=== PATIENT | male | born 1965 | race Caucasian/White ===

== ENCOUNTER 2016-04-28 03:39 | Emergency (ER) | payer SELFPAY ==
[~2016-04-28] VITALS: Ht 188 cm; Wt 77.1 kg
--- NOTE | 2016-04-28 03:58 | ED UPPER/LOWER EXTREMITY COMPL ---
History of Present Illness General Chief Complaint: Shoulder Injury Stated Complaint: DISLOCATED LEFT SHOULDER Source: patient Exam Limitations: no limitations Vital Signs & Intake/Output Vital Signs & Intake/Output Vital Signs Date Time Temp Pulse Resp B/P Pulse O2 O2 Flow FiO2 Ox Delivery Rate 04/28 0359 81 20 151/78 98 Allergies Coded Allergies: NSAIDS (Non-Steroidal Anti-Inflamma (SWELLING 04/28/16) barley (HIVES 04/28/16) Reconcile Medications Hydrocodone/Acetaminophen (Vicodin 5-300 MG Tablet) 5 MG-300 MG TABLET 1 TAB PO Q4-6 PRN Pin (Reported) Triage Nurses Notes Reviewed? yes Onset: Abrupt Duration: hour(s): Timing: single episode today Severity: moderate Pain/Injury Location: Left: Shoulder. Method of Injury: "I WAS PICKING SOMETHING UP." Modifying Factors: Worsens With: movement. Associated Symptoms: LEFT SHOULDER PAIN. HPI: 50 yo gentleman presents with "winged scapula" syndrome. "I was lifting a box a few hours ago and my shoulder popped out.... There is only a few like me in the world... Let me show you a video." He notes pain and reduced range of motion. No direct contusion or injury Past History Travel History Traveled to [place] past 21 day No Medical History Any Pertinent Medical History? see below for history Musculoskeletal: "winged scapula" syndrome Surgical History Surgical History: none Family History Hx Contributory? No Review of Systems Review of Systems Constitutional: Reports: no symptoms. EENTM: Reports: no symptoms. Respiratory: Reports: no symptoms. Cardiovascular: Reports: no symptoms. Gastrointestinal/Abdominal: Reports: no symptoms. Genitourinary: Reports: no symptoms. Musculoskeletal: Reports: no symptoms. Skin: Reports: no symptoms. Neurological/Psychological: Reports: no symptoms. Hematologic/Endocrine: Reports: no symptoms. Immunological: Reports: no symptoms. All Other Systems: Reviewed and Negative Physical Exam Physical Exam General Appearance: well developed/nourished, mild distress Head: atraumatic Eyes: Bilateral: normal appearance. Ears, Nose, Throat: normal pharynx, normal ENT inspection, hearing grossly normal Neck: normal inspection, supple Cardiovascular/Respiratory: regular rate/rhythm Back: normal inspection Shoulder Left: deformity of scapula.... superior displacement... limited ROM of shoulder. no focal bony tenderness. Skin: intact, normal color, warm/dry Lymphatic: no anterior cervical alma Progress Differential Diagnosis: dislocation, fracture, sprain Plan of Care: Current Medications Sig/Evon Start time Last Medication Dose Stop Time Status Admin Hydromorphone HCl 1 MG ONCE ONE 04/28 399 CAN (Dilaudid) 04/28 400 Diagnostic Imaging: Viewed by Me: Radiology Read. Discussed w/RAD: Radiology Read. Radiology Impression: LEFT SHOULDER... CEPHALAD WINGING OF SCAPULA... FULL REPORT BELOW. Comments: PATIENT: CHRISS HERNANDEZ PRESENT AGE: 50 PATIENT ACCOUNT NO: [id number] : 67 LOCATION: [facility] ORDERING PHYSICIAN: MAGDA SOSA MD SERVICE DATE: 04/28/16 EXAM TYPE: RAD - XRY-SHOULDER COMPLETE-LEFT EXAMINATION: XR SHOULDER, LEFT CLINICAL INFORMATION: Left shoulder dislocation. COMPARISON: None. TECHNIQUE: Single internal rotation AP view of the left shoulder . Patient refused second image. FINDINGS: There is abnormal orientation of the scapula with cephalad displacement of the scapular body and medial margin. Humeral head is appropriate situated at the glenoid. Acromioclavicular joint alignment appears normal. IMPRESSION: Cephalad winging of the scapula on this single AP view. Alignment of the acromioclavicular and glenohumeral joints is normal. DICTATED BY: JOSHUA JOHNSON MD DATE/TIME DICTATED:04/28/16428 HOGSHEAD FILLER:JAE DATE/TIME TRANSCRIBED:04/28/16428 CONFIDENTIAL, DO NOT COPY WITHOUT APPROPRIATE AUTHORIZATION. <Electronically signed in Other Vendor System> SIGNED BY: JOSHUA JOHNSON MD 04/28/16435 Departure Departure Disposition: HOME OR SELF CARE Condition: Stable Clinical Impression Primary Impression: Winged scapula of left side Referrals: UNKNOWN (PCP/Family) Referred to [facility] as new patient No Departure Forms: Customer Survey General Discharge Information Comments [email or web address] Procedures Joint Reduction Joint Reduction Site: shoulder (L) Conscious Sedation: NO CONSCIOUS SEDATION Reduction Attempts: 1 Pre-Procedure NV Exam: Yes Post-Procedure NV Exam: Yes Post Joint Reduction Film: joint reduced Progress: PT PROVIDED YOUTUBE VIDEO WHICH FEATURES HIMSELF HAVING HIS SCAPULA REDUCED....THIS PROCEDURE WAS FOLLOWED.[email or web address] Pt showed excellent function. He declines follow up xray/pain meds.
[2016-04-28 03:59] VITALS: BP 151/78
[2016-04-28] MEDS ORDERED: VICODIN 5-3001 EACH PO (04:01)
--- NOTE | 2016-04-28 04:36 | RADIOLOGY REPORT ---
EXAMINATION: XR SHOULDER, LEFT CLINICAL INFORMATION: Left shoulder dislocation. COMPARISON: None. TECHNIQUE: Single internal rotation AP view of the left shoulder . Patient refused second image. FINDINGS: There is abnormal orientation of the scapula with cephalad displacement of the scapular body and medial margin. Humeral head is appropriate situated at the glenoid. Acromioclavicular joint alignment appears normal. IMPRESSION: Cephalad winging of the scapula on this single AP view. Alignment of the acromioclavicular and glenohumeral joints is normal.
== END 2016-04-28 06:43 ==
LOC: ERH 03:39
DX: M95.8 Other specified acquired deformities of musculoskeletal system (principal); X50.0XXA Overexertion from strenuous movement or load, initial encounter
CPT/HCPCS: 73030-LT; 96372

== ENCOUNTER 2016-05-08 08:39 | Emergency (ER) | payer SELFPAY ==
[~2016-05-08] VITALS: Ht 188 cm; Wt 81.6 kg
[~2016-05-08 08:39] MED LIST: VICODIN 5-3001 EACH PO
[2016-05-08 08:46] VITALS: BP 122/86
--- NOTE | 2016-05-08 09:01 | ED UPPER/LOWER EXTREMITY COMPL ---
History of Present Illness General Chief Complaint: General Adult Stated Complaint: "DISLOCATED L SCAPULA" Source: patient Exam Limitations: no limitations Vital Signs & Intake/Output Vital Signs & Intake/Output Vital Signs Date Time Temp Pulse Resp B/P Pulse O2 O2 Flow FiO2 Ox Delivery Rate 05/08 0846 97.2 83 20 122/86 98 Allergies Coded Allergies: NSAIDS (Non-Steroidal Anti-Inflamma (SWELLING 04/28/16) barley (HIVES 04/28/16) Reconcile Medications No Known Home Medications Triage Note: PT PRESENTS TO ER C/O OF LEFT SCAPULA DISLOCATION. 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 PT STATES THIS HAPPENS FREQUENTLY DUE TO HIS SYNDROME. PT STATES HE IS ALLERGIC TO NSAIDS AND DOESN'T WANT TO TAKE ANYTHING UNTIL HE SEES MD Triage Nurses Notes Reviewed? yes HPI: Patient presents for evaluation of abrupt onset of severe left periscapular pain as a result of a dislocated scapula that began prior to arrival. Patient states that the incident occurred while he was getting up out of a chair at a local hotel. He has had left scapular dislocations for many years. He states that there is no real viable permanent solution to his problem as surgical correction has what he feels to be unacceptably high complication rates. Past History Travel History Traveled to [place] past 21 day No Medical History Any Pertinent Medical History? see below for history Neurological: NONE EENT: NONE Cardiovascular: NONE Respiratory: NONE Gastrointestinal: NONE Hepatic: NONE Renal: NONE Musculoskeletal: "winged scapula" syndrome Psychiatric: NONE Endocrine: NONE Surgical History Surgical History: none Psychosocial History What is your primary language Latvian Tobacco Use: Never used Family History Hx Contributory? No Review of Systems Review of Systems Constitutional: Reports: no symptoms. EENTM: Reports: no symptoms. Respiratory: Reports: no symptoms. Cardiovascular: Reports: no symptoms. Gastrointestinal/Abdominal: Reports: no symptoms. Genitourinary: Reports: no symptoms. Musculoskeletal: Reports: see HPI. Skin: Reports: no symptoms. Neurological/Psychological: Reports: no symptoms. Hematologic/Endocrine: Reports: no symptoms. Immunological: Reports: no symptoms. All Other Systems: Reviewed and Negative Physical Exam Physical Exam General Appearance: see below Comments: Gen.: Well-nourished, well-developed, no acute respiratory distress. Head: Normocephalic, atraumatic. Eyes: Normal inspection bilaterally Ears: Normal inspection bilaterally Nose: Normal inspection Throat/mouth : Moist mucosa Neck: Supple, full range of motion, no goiter Heart: Regular rate and rhythm, no murmurs rubs or gallops Lungs: Clear to auscultation bilaterally with normal air entry Chest: Nontender Back: Normal range of motion Abdomen: Soft, nontender, nondistended, normal bowel sounds Extremities: Left shoulder: Deformity noted in the area of the left trapezius with decreased range of motion of left upper extremity, left upper extremity is otherwise neurovascular intact. Neurologic: Cranial nerves grossly intact, speech is clear Skin: warm and dry Psychiatric: Calm, cooperative, no apparent delusions or hallucinations Progress Differential Diagnosis: dislocation Plan of Care: Current Medications Sig/Evon Start time Last Medication Dose Stop Time Status Admin Hydromorphone HCl 2 MG ONCE ONE 05/08 914 UNVr (Dilaudid) 05/08 915 Comments: 05/08/2016 9:12:55 AM patient medicated with 6 mg of subcutaneous morphine and reduction of the patient's scapular dislocation attempted under his direction. First attempt unsuccessful. Patient states his pain is not adequately controlled to allow the reduction to occur. He refuses however ketamine or anything else to "knock him out" and he refuses an IV. IM Dilaudid ordered. 05/08/2016 9:29:44 AM second attempt at reduction successful. Patient's deformity resolved. Departure Departure Disposition: HOME OR SELF CARE Condition: Stable Clinical Impression Primary Impression: Closed dislocation of left scapula Qualifiers: Encounter type: initial encounter Qualified Code: S43.315A - Dislocation of left scapula, initial encounter Referrals: UNKNOWN (PCP/Family) Additional Instructions: Avoid extreme movements of the left shoulder. Use Shoulder immobilizer or clavicle splint. Follow-up with an operations and maintenance specialist (such as Dr COREAS ) as soon as possible for reevaluation. Return if any concerns or sudden worsening. Departure Forms: Customer Survey General Discharge Information Prescriptions: Current Visit Scripts No Known Home Medications
== END 2016-05-08 09:41 ==
LOC: ERH 08:39
DX: S43.312 Subluxation of left scapula (principal); X58.XXXA Exposure to other specified factors, initial encounter
CPT/HCPCS: 96372

== ENCOUNTER 2016-08-23 10:08 | Emergency (ER) | payer OTHER ==
[~2016-08-23] VITALS: Ht 188 cm; Wt 81.6 kg
--- NOTE | 2016-08-23 10:36 | ED UPPER/LOWER EXTREMITY COMPL ---
History of Present Illness General Chief Complaint: Shoulder Injury Stated Complaint: ?DISLOCATED LT SHOULER Source: patient Exam Limitations: no limitations Vital Signs & Intake/Output Vital Signs & Intake/Output Vital Signs Date Time Temp Pulse Resp B/P B/P Pulse O2 O2 Flow FiO2 Mean Ox Delivery Rate 08/23 1127 82 16 134/75 95 Room Air 08/23 1115 Room Air 08/23 1013 98.0 101 20 125/78 98 Room Air Allergies Coded Allergies: NSAIDS (Non-Steroidal Anti-Inflamma (SWELLING 04/28/16) barley (HIVES 04/28/16) Reconcile Medications No Known Home Medications Triage Note: PT TO ED C/O LEFT SHOULDER DISLOCATION. STATES HAPPENED 20 MINS AGO WHILE LIFTING A BOX. H/O THE SAME. DECLINING MEDS IN TRIAGE. Triage Nurses Notes Reviewed? yes Onset: Abrupt Duration: minute(s):, constant, continues in ED Timing: recent history Severity: moderate, severe Pain/Injury Location: Left: Shoulder. No Modifying Factors: none HPI: 51-year-old male comes into emergency room with complaints of left scapular dislocation. He reports that he is one of 3 people in the country that gets a winged scapula and requires reduction from time to time. This is normal for him. Patient was lifting some furniture when it happened. Denies any other associated symptoms. Patient does not want an x-ray because he has had this many times before. Sharp pain. Continuous. Nonradiating. (YANIRA BARCLAY) Past History Travel History Traveled to [place] past 21 day No Medical History Any Pertinent Medical History? see below for history Neurological: NONE EENT: NONE Cardiovascular: NONE Respiratory: NONE Gastrointestinal: NONE Hepatic: NONE Renal: NONE Musculoskeletal: "winged scapula" syndrome Psychiatric: NONE Endocrine: NONE Surgical History Surgical History: none Psychosocial History What is your primary language Haitian Tobacco Use: Current Daily Use Daily Tobacco Use Amount/Type: => 5 Cigarettes daily ETOH Use: denies use Illicit Drug Use: denies illicit drug use Family History Hx Contributory? No (YANIRA BARCLAY) Review of Systems Review of Systems Constitutional: Reports: no symptoms. EENTM: Reports: no symptoms. Respiratory: Reports: no symptoms. Cardiovascular: Reports: no symptoms. Gastrointestinal/Abdominal: Reports: no symptoms. Genitourinary: Reports: no symptoms. Musculoskeletal: Reports: see HPI. Skin: Reports: no symptoms. Neurological/Psychological: Reports: no symptoms. Hematologic/Endocrine: Reports: no symptoms. Immunological: Reports: no symptoms. All Other Systems: Reviewed and Negative (YANIRA BARCLAY) Physical Exam Physical Exam General Appearance: well developed/nourished, mild distress Head: atraumatic Eyes: Bilateral: normal appearance. Ears, Nose, Throat: normal ENT inspection, hearing grossly normal Neck: normal inspection Cardiovascular/Respiratory: no respiratory distress Back: normal inspection Shoulder Left: positive deformity scapular region , radial pulse intact, manager transport strength intact, sensation intact, Neurologic/Tendon: normal sensation, normal motor functions, normal tendon functions, responds to pain, no evidence tendon injury, no pulse deficit Skin: intact, normal color, warm/dry Lymphatic: no anterior cervical alma (YANIRA BARCLAY) Progress Differential Diagnosis: contusion, dislocation, DVT, fracture, gout, septic arthritis, sprain, tendon injury, winged scapula Plan of Care: Current Medications Sig/Evon Start time Last Medication Dose Stop Time Status Admin Diazepam 5 MG ONCE ONE 08/23 1129 UNVr (Valium) 08/23 1131 Departure Departure Disposition: HOME OR SELF CARE Condition: Stable Clinical Impression Primary Impression: Closed dislocation of left scapula Referrals: PATIENT HAS NO PRIMARY CARE DR (PCP/Family) Additional Instructions: Follow-up with your orthopedic doctor. Return if any concerns worsening symptoms. Please go over all results of today's visit with your primary care doctor. Contact your primary care doctor to let them know you were here in the emergency room. There may be nonspecific findings which may not be related to your visit today here in the emergency room but may require further evaluation and chronic monitoring by your primary care doctor. If you had a laceration today the chance of foreign body always remains. You should follow-up with your primary care doctor for recheck in 3-5 days for a wound check. If you had an x-ray done there is a chance that a fracture could have been missed on initial read and you should follow-up with your primary care doctor for repeat x-rays if symptoms persist. If your blood pressure was elevated here in the emergency room please have rechecked by her primary care doctor within the next 48 hours by your primary care doctor. If you were prescribed a narcotic here in the emergency room or any type of controlled substances you're not allowed to drive while taking this medication or operate any type of heavy machinery. Narcotics can make you feel lightheaded dizziness nausea and can cause constipation. You may need to pick up man a stool softener. Thank you for choosing [facility] emergency room. Please return to the emergency room immediately if you have any other concerns worsening of symptoms. Departure Forms: Customer Survey General Discharge Information Prescriptions: Current Visit Scripts No Known Home Medications Comments 08/23/2016 11:41:05 AM Patient clinically looks well. Patient declined any x-ray here in the emergency room. Follow-up with primary care doctor. Return if any other concerns. (YANIRA BARCLAY) PA/ACCOUNTING CONSULTANT Co-Sign Statement Statement: ED Attending supervision documentation- [] I saw and evaluated the patient. I have also reviewed all the pertinent lab results and diagnostic results. I agree with the findings and the plan of care as documented in the PA's/ACCOUNTING CONSULTANT's documentation. [X] I have reviewed the ED Record and agree with the PA's/ACCOUNTING CONSULTANT's documentation. [] Additions or exceptions (if any) to the PAs/ACCOUNTING CONSULTANT's note and plan are summarized below: [] (ROSE HUGO,DANIELLE Hopson) Procedures Joint Reduction Joint Reduction Site: shoulder (L) (scapula) Conscious Sedation: patient medicated with IM Dilaudid Reduction Attempts: 2 Pre-Procedure NV Exam: Yes Post-Procedure NV Exam: Yes Post Joint Reduction Film: joint reduced (YANIRA BARCLAY)
[2016-08-23 11:27] VITALS: BP 134/75
== END 2016-08-23 11:29 ==
LOC: ERH 10:08
DX: S43.315A Dislocation of left scapula, initial encounter (principal); X50.0XXA Overexertion from strenuous movement or load, initial encounter; Y93.89 Activity, other specified; Y92.9 Unspecified place or not applicable
CPT/HCPCS: 96372; J3360

== ENCOUNTER 2016-11-20 08:32 | Emergency (ER) | payer OTHER ==
[~2016-11-20] VITALS: Ht 188 cm; Wt 81.6 kg
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
--- NOTE | 2016-11-20 09:48 | RADIOLOGY REPORT ---
EXAMINATION: LEFT ELBOW AND RIGHT HAND CLINICAL INFORMATION: Trauma COMPARISON: None TECHNIQUE: 4 views of the left elbow. Frontal lateral and oblique films of the right hand FINDINGS: Left elbow: There is a small elbow joint effusion. There is a nondisplaced fracture of the radial head extending to the articular surface. There is no dislocation. No other fracture is seen in the left elbow. Right hand: No definite acute fracture or dislocation is seen in the right hand. Slight cortical irregularity along the lateral mid shaft of the fifth metacarpal may be sequela of old injury. A fracture line is not defined. There is old healed fracture involving the base of the first metacarpal and the distal phalanx of the fifth finger. No dislocation. IMPRESSION: 1. Nondisplaced fracture of the left radial head extending to the articular surface. No dislocation. 2. No definite acute fracture or dislocation is seen in the right hand. Some cortical irregularity along the lateral aspect of the fifth metacarpal shaft may be sequela of old injury. Correlate with clinical findings. 3. Old healed fractures of the distal phalanx of the right fifth finger and first metacarpal shaft
[2016-11-20] MEDS ORDERED: OXYCODONE HCL5 M1 PO (10:22)
[2016-11-20 10:28] VITALS: BP 124/80
== END 2016-11-20 10:28 ==
LOC: ERH 08:32
DX: S52.122A Displaced fracture of head of left radius, initial encounter for closed fracture (principal); W20.8XXA Other cause of strike by thrown, projected or falling object, initial encounter; Y92.9 Unspecified place or not applicable; Y93.9 Activity, unspecified
CPT/HCPCS: 73080-LT; 73120-RT

== ENCOUNTER 2017-07-27 10:57 | Emergency (ER) | payer SELFPAY ==
[~2017-07-27] VITALS: Ht 188 cm; Wt 72.6 kg
[~2017-07-27 10:57] MED LIST changes: +OXYCODONE HCL5 M1 PO
[2017-07-27 11:02] VITALS: BP 111/71
--- NOTE | 2017-07-27 11:22 | ED UPPER/LOWER EXTREMITY COMPL ---
History of Present Illness General Chief Complaint: Shoulder Injury Stated Complaint: L SHOULDER PAIN Source: patient Exam Limitations: no limitations Vital Signs & Intake/Output Vital Signs & Intake/Output Vital Signs Date Time Temp Pulse Resp B/P B/P Pulse O2 O2 Flow FiO2 Mean Ox Delivery Rate 07/27 1102 98.3 91 18 111/71 98 Room Air Allergies Coded Allergies: NSAIDS (Non-Steroidal Anti-Inflamma (SWELLING 04/28/16) barley (HIVES 04/28/16) Reconcile Medications No Known Home Medications Triage Note: 52 YO MALE TO TRIAGE STATING "MY SCAPULA IS DISLOCATED" STATES THIS HAS HAPPENED BOFRE. STATES HE WAS LIFTING A BOX AND HEARD A POP. PT ABLE TO MOVE L ARM. Triage Nurses Notes Reviewed? yes Onset: Abrupt Duration: day(s):, constant Timing: recent history Severity: moderate, severe Pain/Injury Location: Left: Shoulder. No Modifying Factors: none HPI: 52-year-old male comes into the emergency room reporting that his left scapula is dislocated reports that it's happened to him before. It occurred while lifting a box. He reports that they typically give him IM Dilaudid and then reduce it. Sharp. Continuous. (Skinny Proctor) Past History Travel History Traveled to [place] past 21 day No Medical History Any Pertinent Medical History? 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 No (Skinny Proctor) Review of Systems Review of Systems Constitutional: Reports: no symptoms. EENTM: Reports: no symptoms. Respiratory: Reports: no symptoms. Cardiovascular: Reports: no symptoms. Gastrointestinal/Abdominal: Reports: no symptoms. Genitourinary: Reports: no symptoms. Musculoskeletal: Reports: see HPI. Skin: Reports: no symptoms. Neurological/Psychological: Reports: no symptoms. Hematologic/Endocrine: Reports: no symptoms. Immunological: Reports: no symptoms. All Other Systems: Reviewed and Negative (Skinny Proctor) Physical Exam Physical Exam General Appearance: well developed/nourished, mild distress Head: atraumatic Eyes: Bilateral: normal appearance. Ears, Nose, Throat: normal ENT inspection, hearing grossly normal Neck: normal inspection Cardiovascular/Respiratory: no respiratory distress Back: normal inspection Shoulder Left: DEFORMITY, LIMITED RANGE OF MOTION, RADIAL PULSE INTACT, CARD STRIPPER STRENGTH INTACT Neurologic/Tendon: normal sensation, normal motor functions, normal tendon functions, responds to pain, no evidence tendon injury, no pulse deficit Skin: intact, normal color, warm/dry (Skinny Proctor) Progress Differential Diagnosis: contusion, dislocation, fracture, sprain, tendon injury Plan of Care: Current Medications Sig/Evon Start time Last Medication Dose Stop Time Status Admin Morphine Sulfate 10 MG ONCE ONE 07/27 113 UNVr (Morphine) 07/27 1131 Comments: 07/27/2017 2:20:09 PM Patient told me that he wanted Dilaudid for the reduction. I explained to him that there is no Dilaudid in the hospital currently. He reports that it would then take 20 mg of morphine. I told him I will not give him 20 mg of morphine. Patient was told that we can start with 10 mg and attempt reduction and if that wasn't able to be done we could consider conscious sedation. When the nurse went to administer the morphine he was sleeping in the room comfortably. we came back and reevaluated him. He was upset that he had not gotten the medication. He was given the morphine 10 mg IM. He was alert and oriented and not drowsy at that time. After 5 minutes of getting the medication he was demanding that he get the other 10 mg. I told him that that is not how it works and we can attempt a manual reduction in a few minutes. The patient walked out of the emergency room and eloped AGAINST MEDICAL ADVICE. He reports "he will return later when there is another doctor on that will give him the 20 mg of morphine". He did not sign any forms. He just walked out of the emergency room. The case was discussed with Dr. De La Rosa and he agreed with my plan of care. (Skinny Proctor) Departure Departure Disposition: LEFT AGAINST MEDICAL ADVICE Condition: Stable Clinical Impression Primary Impression: Closed dislocation of left scapula Referrals: Patient Has No Primary Care Dr (PCP/Family) Additional Instructions: Patient eloped from the ER because he wanted another 10 mg of morphine for attempt at reduction was performed. He left AMA. He did not sign any forms. He just walked out of the emergency room. Departure Forms: Customer Survey General Discharge Information Prescriptions: Current Visit Scripts No Known Home Medications (Skinny Proctor) PA/MANAGER IT TRAINING Co-Sign Statement Statement: ED Attending supervision documentation- [] I saw and evaluated the patient. I have also reviewed all the pertinent lab results and diagnostic results. I agree with the findings and the plan of care as documented in the PA's/MANAGER IT TRAINING's documentation. [X] I have reviewed the ED Record and agree with the PA's/MANAGER IT TRAINING's documentation. During the PAs presentation of the case to me the patient announced that he was leaving in order to return when there is a different doctor in the emergency department. He ambulated quite briskly from the emergency department and seemed to be in no distress whatsoever. [] Additions or exceptions (if any) to the PAs/MANAGER IT TRAINING's note and plan are summarized below: [] (Estrella HUGO,Emanuel Roblero)
== END 2017-07-27 14:22 | disposition left against medical advice (07) ==
LOC: ERH 10:57
DX: S43.312 Subluxation of left scapula (principal); X58.XXXA Exposure to other specified factors, initial encounter; Y92.9 Unspecified place or not applicable; Y93.9 Activity, unspecified
CPT/HCPCS: 96372

== ENCOUNTER 2017-10-29 10:16 | Emergency (ER) | payer SELFPAY ==
[~2017-10-29] VITALS: Ht 188 cm; Wt 81.6 kg
[2017-10-29 11:24] VITALS: BP 153/70
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
== END 2017-10-29 11:42 ==
LOC: ERH 10:16
DX: S43.315A Dislocation of left scapula, initial encounter (principal); X50.9XXA Other and unspecified overexertion or strenuous movements or postures, initial encounter; Y93.89 Activity, other specified
CPT/HCPCS: 96372

== ENCOUNTER 2017-10-30 04:25 | Emergency (ER) | payer SELFPAY ==
[~2017-10-30] VITALS: Ht 188 cm; Wt 72.6 kg
[2017-10-30 04:37] VITALS: BP 113/69
--- NOTE | 2017-10-30 04:47 | ED UPPER/LOWER EXTREMITY COMPL ---
History of Present Illness General Chief Complaint: Upper Extremity Injury Stated Complaint: "LT SHOULDER DISLOCATED" Source: patient Exam Limitations: no limitations Vital Signs & Intake/Output Vital Signs & Intake/Output Vital Signs Date Time Temp Pulse Resp B/P B/P Pulse O2 O2 Flow FiO2 Mean Ox Delivery Rate 10/30 0437 96.7 84 20 113/69 99 Room Air Allergies Coded Allergies: NSAIDS (Non-Steroidal Anti-Inflamma (SWELLING 04/28/16) barley (HIVES 04/28/16) Reconcile Medications No Known Home Medications Triage Note: PT HERE WITH C/O LEFT SCAPULA DISLOCATION. PT WAS HERE EARLIER AND HAD IT RE-SET AND "IT CAME BACK OUT". Triage Nurses Notes Reviewed? 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 He notes, "I woke up this morning and it had popped out again." He denies trauma, but notes, "this sorta thing has happened before... my scapula will pop out around 10 times a year." He is otherwise well. Past History Travel History Traveled to [place] past 21 day No Medical History Any Pertinent Medical History? 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 No Review of Systems Review of Systems Constitutional: Reports: no symptoms. EENTM: Reports: no symptoms. Respiratory: Reports: no symptoms. Cardiovascular: Reports: no symptoms. Gastrointestinal/Abdominal: Reports: no symptoms. Genitourinary: Reports: no symptoms. Musculoskeletal: Reports: no symptoms. Skin: Reports: no symptoms. Neurological/Psychological: Reports: no symptoms. Hematologic/Endocrine: Reports: no symptoms. Immunological: Reports: no symptoms. All Other Systems: Reviewed and Negative Physical Exam Physical Exam General Appearance: well developed/nourished, mild distress Head: atraumatic Eyes: Bilateral: normal appearance. Ears, Nose, Throat: normal pharynx, normal ENT inspection, hearing grossly normal Neck: normal inspection, supple Cardiovascular/Respiratory: regular rate/rhythm Back: normal inspection Shoulder Left: deformity of the left scapula c/w dislocation. left humeral head appears to be inalignment with normal ROM. Skin: intact, normal color, warm/dry Lymphatic: no anterior cervical alma Progress Differential Diagnosis: scapula dislocation Plan of Care: Current Medications Sig/Evon Start time Last Medication Dose Stop Time Status Admin Hydromorphone HCl 2 MG ONCE ONE 10/30 514 UNVr 10/30 (Dilaudid) 10/30 0516 0519 Departure Departure Disposition: HOME OR SELF CARE Condition: Stable Clinical Impression Primary Impression: Closed dislocation of left scapula Referrals: Patient Has No Primary Care Dr (PCP/Family) Departure Forms: Customer Survey General Discharge Information Prescriptions: Current Visit Scripts No Known Home Medications Comments pt given dilaudid 2mg im x 2... traction applied anteriorly. I pushed scapula superiorly. pt's scapula snapped back into postion. ROM is normal afterwards. His pain is resolved. Procedures Joint Reduction Joint Reduction Site: left scapular reduction Reduction Attempts: 1 Pre-Procedure NV Exam: Yes Post-Procedure NV Exam: Yes Post Joint Reduction Film: joint reduced
== END 2017-10-30 05:31 ==
LOC: ERH 04:25
DX: S43.312 Subluxation of left scapula (principal); X58.XXXA Exposure to other specified factors, initial encounter; Y92.9 Unspecified place or not applicable; Y93.89 Activity, other specified
CPT/HCPCS: 96372

== ENCOUNTER 2017-12-02 12:29 | Emergency (ER) | payer SELFPAY ==
[~2017-12-02] VITALS: Ht 188 cm; Wt 81.6 kg
[2017-12-02 13:06] VITALS: BP 109/66
--- NOTE | 2017-12-02 13:45 | ED GENERAL ADULT ---
History of Present Illness General Chief Complaint: Shoulder Injury Stated Complaint: "DISLOCATED MY LEFT SHOULDER" Source: patient, old records Exam Limitations: no limitations Vital Signs & Intake/Output Vital Signs & Intake/Output Vital Signs Date Time Temp Pulse Resp B/P B/P Pulse O2 O2 Flow FiO2 Mean Ox Delivery Rate 12/02 1306 98.2 79 17 109/66 98 Room Air Room Air Allergies Coded Allergies: NSAIDS (Non-Steroidal Anti-Inflamma (SWELLING 12/02/17) barley (HIVES 12/02/17) Reconcile Medications No Known Home Medications Triage Note: PT TO TRIAGE FOR LEFT SHOULDER AND SCAPULAR PAIN. STATES SCAPULA IS "DISLOCATED" STATES THIS HAPPENS OFTEN AND IT JUST NEEDS TO BE REPLACED. Triage Nurses Notes Reviewed? 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 Patient states that it "happened again "patient states that he was lifting something at home, felt his scapula lock. Typically, with this presentation patient requires analgesia and manual reduction. Patient denies any other symptoms and is otherwise asymptomatic/intact. Past History Travel History Traveled to [place] past 21 day No Medical History Any Pertinent Medical History? 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 No Review of Systems Review of Systems Constitutional: Reports: no symptoms. EENTM: Reports: no symptoms. Respiratory: Reports: no symptoms. Cardiovascular: Reports: no symptoms. GI: Reports: no symptoms. Genitourinary: Reports: no symptoms. Musculoskeletal: Reports: see HPI. Skin: Reports: no symptoms. Neurological/Psychological: Reports: no symptoms. Hematologic/Endocrine: Reports: no symptoms. Immunologic/Allergic: Reports: no symptoms. Physical Exam Physical Exam General Appearance: well developed/nourished, no apparent distress, alert, comfortable, thin Head: atraumatic Eyes: Bilateral: normal appearance. Ears, Nose, Throat: normal ENT inspection Neck: supple, full range of motion Respiratory: normal breath sounds, lungs clear Cardiovascular: regular rate/rhythm, normal peripheral pulses Gastrointestinal: soft, non-tender Comments: Patient scapula is locked in abduction with normal range of motion to the left shoulder and no other deformities. Neuro vascular intact distally. Core Measures ACS in differential dx? No CVA/TIA Diagnosis: No Sepsis Present: No Sepsis Focused Exam Completed? No Progress Differential Diagnoses I considered the following diagnoses in my evaluation of the patient: Scapular dislocation/scapula, lower suspicion for acute fracture or shoulder dislocation. Doubt acute vascular pathology. Could be drug-seeking, although physical exam findings are impressive. Plan of Care: Current Medications Sig/Evon Start time Last Medication Dose Stop Time Status Admin Hydromorphone HCl 2 MG ONCE ONE 12/02 1344 AC (Dilaudid) 12/02 134 Plan for pain control, manual reduction, reassessment. Following analgesia with 4 mg of IM Dilaudid, able to manually reduce the scapula without difficulty. Neurovascularly intact following procedure. Initial ED EKG: none Departure Departure Time of Disposition: 1356 Disposition: HOME OR SELF CARE Condition: Stable Clinical Impression Primary Impression: Scapular dysfunction Referrals: Patient Has No Primary Care Dr (PCP/Family) Additional Instructions: Thank you for coming to [facility] today. Please take Tylenol as needed for pain. Please return the emergency department if you develop new or worsening symptoms. As we discussed, I do recommend he follow-up with her primary doctor. Departure Forms: Customer Survey General Discharge Information Prescriptions: Current Visit Scripts No Known Home Medications Critical Care Note Critical Care Note Critical Care Time: non-applicable
== END 2017-12-02 14:02 ==
LOC: ERH 12:29
DX: S43.005A Unspecified dislocation of left shoulder joint, initial encounter (principal); X58.XXXA Exposure to other specified factors, initial encounter; Y92.009 Unspecified place in unspecified non-institutional (private) residence as the place of occurrence of the external cause; Y93.89 Activity, other specified
CPT/HCPCS: 96372

== ENCOUNTER 2017-12-13 04:01 | Emergency (ER) | payer SELFPAY ==
--- NOTE | 2017-12-13 04:24 | ED UPPER/LOWER EXTREMITY COMPL ---
History of Present Illness General Chief Complaint: Shoulder Injury Stated Complaint: DISLOCATED LEFT SHOULDER Source: patient Exam Limitations: no limitations Vital Signs & Intake/Output Vital Signs & Intake/Output Vital Signs Date Time Temp Pulse Resp B/P B/P Pulse O2 O2 Flow FiO2 Mean Ox Delivery Rate 12/13 0430 98.3 62 18 126/63 99 Room Air 12/13 0428 Room Air Allergies Coded Allergies: NSAIDS (Non-Steroidal Anti-Inflamma (SWELLING 12/02/17) barley (HIVES 12/02/17) Reconcile Medications No Known Home Medications Triage Nurses Notes Reviewed? yes Onset: Abrupt Duration: hour(s): Timing: recent history Severity: moderate Pain/Injury Location: Left: Shoulder. Modifying Factors: Improves With: rest. Worsens With: movement. Associated Symptoms: left shoulder pain HPI: 52 yo gentleman h/o left scapula dislocation, presents with left shoulder pain consistent with his prior episodes of dislocation. He notes pain, difficulty moving left shoulder. "I just woke up in the middle of the night and it was dislocated... I don't know what happened." Past History Travel History Traveled to [place] past 21 day No Medical History Any Pertinent Medical History? 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 No Review of Systems Review of Systems Constitutional: Reports: no symptoms. EENTM: Reports: no symptoms. Respiratory: Reports: no symptoms. Cardiovascular: Reports: no symptoms. Gastrointestinal/Abdominal: Reports: no symptoms. Genitourinary: Reports: no symptoms. Musculoskeletal: Reports: no symptoms. Skin: Reports: no symptoms. Neurological/Psychological: Reports: no symptoms. Hematologic/Endocrine: Reports: no symptoms. Immunological: Reports: no symptoms. All Other Systems: Reviewed and Negative Physical Exam Physical Exam General Appearance: well developed/nourished, mild distress Head: atraumatic Eyes: Bilateral: PERRL, EOMI. Ears, Nose, Throat: normal pharynx, normal ENT inspection Neck: normal inspection Cardiovascular/Respiratory: no respiratory distress Back: normal inspection Shoulder Left: abnormality of left scapula c/w dislocation. , 2+distal pulse Progress Differential Diagnosis: dislocated scapula Plan of Care: Current Medications Sig/Evon Start time Last Medication Dose Stop Time Status Admin Hydromorphone HCl 2 MG ONCE ONE 12/13 429 UNVr 12/13 (Dilaudid) 12/13 0431 0506 Departure Departure Disposition: HOME OR SELF CARE Condition: Stable Clinical Impression Primary Impression: Dislocation of scapula Referrals: Patient Has No Primary Care Dr (PCP/Family) Departure Forms: Customer Survey General Discharge Information Prescriptions: Current Visit Scripts No Known Home Medications Procedures Joint Reduction Joint Reduction Site: left scapula Conscious Sedation: no Reduction Attempts: 1 Pre-Procedure NV Exam: Yes Post-Procedure NV Exam: Yes Post Joint Reduction Film: joint reduced Progress: excellent result... pt demonstrated normal ROM afterwards
[2017-12-13 04:30] VITALS: BP 126/63
== END 2017-12-13 05:15 ==
LOC: ERH 04:01
DX: S43.005A Unspecified dislocation of left shoulder joint, initial encounter (principal); X58.XXXA Exposure to other specified factors, initial encounter; Y93.84 Activity, sleeping; Y92.9 Unspecified place or not applicable
CPT/HCPCS: 96372

== ENCOUNTER 2017-12-13 21:01 | Emergency (ER) | payer SELFPAY ==
[~2017-12-13] VITALS: Ht 188 cm; Wt 68.0 kg
[2017-12-13 21:04] VITALS: BP 119/58
--- NOTE | 2017-12-13 21:32 | ED GENERAL ADULT ---
History of Present Illness General Chief Complaint: Upper Extremity Injury Stated Complaint: "my shoulder is dislocated" Source: patient Exam Limitations: no limitations Vital Signs & Intake/Output Vital Signs & Intake/Output Vital Signs Date Time Temp Pulse Resp B/P B/P Pulse O2 O2 Flow FiO2 Mean Ox Delivery Rate 12/13 2137 Room Air 12/14 2103 98.2 84 18 119/58 98 Allergies Coded Allergies: NSAIDS (Non-Steroidal Anti-Inflamma (SWELLING 12/02/17) barley (HIVES 12/02/17) Reconcile Medications No Known Home Medications Triage Note: WAS DRIVING QUAD WHEN HE WENT DOWN A DIVIT, FELT HIS L SHOULDER DISLOCATE. HAS LOCKED SCAPULA. WAS HERE LAST NIGHT WITH SAME. Triage Nurses Notes Reviewed? yes HPI: Patient is a 52-year-old who presents today with left-sided shoulder pain. He reports that he has "locked scapula syndrome," and experiences recurrent dislocations which require ED reduction. He states that his case is one of 3 in the country, and is apparently published as a case report through [facility]; there is no surgery that has been recommended, and they apparently have told him there is "nothing that they can do." He states that when this happens, he requires a very specific reduction technique involving anterior traction of the upper extremity with manipulation of the inferior angle of the scapula toward the midline, which is almost universally successful. He does state that he requires intramuscular hydromorphone, 2 mg followed by another 2 mg. He states that after that he has no pain and thus never requires prescriptions. He was here within the past 24 hours for identical symptoms and was reduced successfully by Dr. Benton. Denies other complaints at this time. Past History Medical History Any Pertinent Medical History? 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 Yes Review of Systems Review of Systems Constitutional: Reports: see HPI. Musculoskeletal: Reports: see HPI, joint pain. Denies: back pain. Physical Exam Physical Exam General Appearance: well developed/nourished, no apparent distress Head: atraumatic, normal appearance Cardiovascular: regular rate/rhythm Extremities: obvious deformity to the left scapula consistent with history and consistent with prior ED notes. Distally, the upper extremity is well perfused with 2+ radial pulse. Skin: normal color, warm/dry Core Measures ACS in differential dx? No CVA/TIA Diagnosis: No Sepsis Present: No Sepsis Focused Exam Completed? No Progress Differential Diagnoses I considered the following diagnoses in my evaluation of the patient: Scapular dislocation, glenohumeral dislocation, substance use disorder with narcotic seeking behavior versus true recurrent musculoskeletal/orthopedic dislocations Plan of Care: Current Medications Sig/Evon Start time Last Medication Dose Stop Time Status Admin Diazepam 5 MG ONCE ONE 12/13 2344 UNVr (Valium) 12/13 2345 Initial ED EKG: none Comments: Analgesics administered intramuscularly similarly to prior encounters. Repeat reviewed extensive previous notes from Dr. Benton who has done extensive investigations into the patient's history to confirm his story. Bedside reduction performed without complication. No pre-or post x-rays were deemed necessary given the chronicity of this issue. No other complaints, discharged home in stable condition. Departure Departure Time of Disposition: 2334 Disposition: HOME OR SELF CARE Condition: Stable Clinical Impression Primary Impression: Closed dislocation of left scapula Qualifiers: Encounter type: subsequent encounter Qualified Code: S43.315D - Dislocation of left scapula, subsequent encounter Referrals: Patient Has No Primary Care Dr (PCP/Family) Additional Instructions: Please follow-up with your orthopedist as planned. Departure Forms: Customer Survey General Discharge Information Prescriptions: Current Visit Scripts No Known Home Medications Procedures Joint Reduction Joint Reduction Site: shoulder (L) Reduction Attempts: 2 Pre-Procedure NV Exam: Yes Post-Procedure NV Exam: Yes Post Joint Reduction Film: Not indicated Progress: Patient tolerated well, no complications Critical Care Note Critical Care Note Critical Care Time: non-applicable
== END 2017-12-14 00:23 ==
LOC: ERH 21:01
DX: S43.005A Unspecified dislocation of left shoulder joint, initial encounter (principal); X58.XXXA Exposure to other specified factors, initial encounter; Y92.9 Unspecified place or not applicable; Y93.9 Activity, unspecified
CPT/HCPCS: 96372; J3360